=== PATIENT | male | born 1990 | race Caucasian/White ===

== ENCOUNTER 2016-12-25 21:42 | Emergency (ER) | payer OTHER ==
[2016-12-25 21:53] VITALS: RESP 18
[2016-12-25] MEDS ORDERED: MORPHINE SULFATE 10 MG/ML SYRINGE IM STA (22:18)
--- NOTE | 2016-12-25 22:23 | XR ---
EXAM: XR Left Hand Complete, 3 or More Views CLINICAL HISTORY: Reason: Pain TECHNIQUE: Frontal, lateral and oblique views of the left hand. COMPARISON: No relevant prior studies available. FINDINGS: Bones/joints: While there may be subtle contour deformity of the proximal and distal fifth metacarpal, these appear smoothly marginated and no discrete fracture lucency is seen to suggest an acute fracture. Remaining osseous structures appear intact as does alignment. Soft tissues: No radiopaque foreign body. IMPRESSION: Subtle contour deformity of the fifth metacarpal albeit without discrete acute fracture lucency seen at this time. Note that acute nondisplaced fractures may initially be radiographically occult, and short-term follow-up exam could be obtained perhaps within 3-5 days if concern or symptoms persist.
--- NOTE | 2016-12-25 22:47 | ED ---
Upper Extremity HPI - General Chief Complaint: Extremity Injury, Upper Stated Complaint: Poss Broken Hand Time Seen by Provider: 12/25/16 22:03 Source: patient Mode of arrival: ambulatory Limitations: no limitations - History of Present Illness Initial Comments: Patient is a 26-year-old left-handed white male presenting to the emergency department with complaints of progressive left hand and wrist pain. Patient states that he repeatedly was punching a steel wall out of anger at 12 PM today. Patient complains of pain just distally to his fourth and fifth digit on the left hand, radiating across his hand, over to his wrist. Patient reports numbness to his fourth digit at the tip of his left hand. Patient currently rates pain 10 out of 10, described as sharp, exacerbated with movement , with no relieving factors. Patient states he took a Motrin 800 mg approximately one hour prior to arrival. Patient denies any previous injury or surgery to left upper extremity. Patient states he received a tetanus immunization less than 5 years ago. Severity scale (1-10): 10 (Sharp, throbbing) - Related Data Previous Rx's Medication Instructions Recorded Famotidine [Pepcid] 20 mg PO BID #28 tablet 03/18/16 HYDROcodone/APAP 5-325MG [[place] 1 tab PO Q4HR PRN #20 tab 12/25/16 5-325] Ibuprofen [Motrin] 800 mg PO Q8HR PRN #20 tab 12/25/16 Allergies Allergy/AdvReac Type Severity Reaction Status Date / Time No Known Allergies Allergy Verified 12/25/16 21:53 Review of Systems ROS Statement: Those systems with pertinent positive or pertinent negative responses have been documented in the HPI. ROS Other: All systems not noted in ROS Statement are negative. 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 Absent: scleral icterus, conjunctival injection, periorbital swelling, periorbital tenderness ENT exam: Present: normal exam, mucous membranes moist. Absent: normal oropharynx, normal external ear exam Neck exam: Present: normal inspection, full ROM. Absent: tenderness, lymphadenopathy Respiratory exam: Present: normal lung sounds bilaterally. Absent: respiratory distress, wheezes, rales, rhonchi Cardiovascular Exam: Present: regular rate, normal rhythm, normal heart sounds. Absent: systolic murmur GI/Abdominal exam: Present: soft, normal bowel sounds. Absent: tenderness Left Elbow exam: Present: normal inspection, full ROM Forearm Wrist exam: Present: tenderness, tenderness over anatomical snuff box, pain with axial thumb loading Hand Wrist exam: Present: tenderness (Tenderness and swelling distal to fourth and fifth metacarpal), swelling, abrasion (Multiple abrasions noted to knuckles on left hand.). Absent: full ROM Neuro motor exam: Present: wrist extension intact, thumb opposition intact, thumb IP flexion intact, thumb adduction intact, fingers 2-5 abduction intact Neurosensory exam: Present: 2-point discrimination, radial nerve intact, ulnar nerve intact, median nerve intact Vascular: Present: normal capillary refill, radial pulse, brachial pulse, ulnar pulse. Absent: vascular compromise Neurological exam: Present: alert, oriented X3, normal gait, other (No focal deficits noted.) Psychiatric exam: Present: normal affect, normal mood Skin exam: Present: warm, dry, normal color, abrasion Course Vital Signs 12/25/16 21:49 Temperature 98.2 F Pulse Rate 100 Respiratory 18 Rate Blood Pressure 137/86 O2 Sat by Pulse 99 Oximetry Medical Decision Making - Medical Decision Making Tiny chip fracture involving the base of the fourth metacarpal along its radial margin. Left wrist pain with no evidence of acute left wrist fracture or dislocation. Multiple abrasions to smoke also left hand. Patient placed in a volar splint and thumb speakers splint and instructed to follow-up with orthopedic service next 3-5 days. Patient agrees with treatment plan. Discharge instructions and return parameters reviewed. - Radiology Data Radiology results: report reviewed X-ray left hand: Subtle contour deformity of the fifth metacarpal no bite without discrete acute fracture lucency seen at this time. As read by radiologistDr.Fine. Left wrist x-ray: Possible tiny chip fracture involving the base of the fourth metacarpal along its radial margin. No evidence of acute left wrist fracture nor dislocation. As read by radiologistDr. Portillo. Disposition Clinical Impression: Fracture of fourth metacarpal bone of left hand, Left wrist pain, Abrasion hand Disposition: HOME SELF-CARE Condition: Good Instructions: Hand Fracture (ED), Splint Care (ED), Wrist Injury (ED), Abrasion (ED) Additional Instructions: Avoid activity that causes left hand or wrist pain pain Apply ice to left hand and wrist 4 times a day for 15-20 minutes over next 2 days. Keep elevated as much as possible 24-48 hours. Continue prescribed Motrin 3 times a day for next 48 hours, may take [place] 5 for moderate to severe pain. Return to the emergency department with symptoms of increased swelling, pain, numbness, tingling, or hand feeling cold to touch. Follow-up with primary service and orthopedic service as directed. Prescriptions: HYDROcodone/APAP 5-325MG [[place] 5-325] 1 tab PO Q4HR PRN #20 tab PRN Reason: Pain Ibuprofen [Motrin] 800 mg PO Q8HR PRN #20 tab PRN Reason: Pain Referrals: Helena Foreman MD [Primary Care Provider] - 1-2 days Hubert De Souza MD [STAFF PHYSICIAN] - 1-2 days Time of Disposition: 23:17
--- NOTE | 2016-12-25 22:57 | XR ---
EXAM: XR Left Wrist Complete, 3 or More Views CLINICAL HISTORY: Reason: Pain TECHNIQUE: Frontal, lateral and oblique views of the left wrist, and including a scaphoid view. COMPARISON: Earlier left hand series of the same day. FINDINGS: Bones/joints: As only apparent on the frontal view, there is a punctate ossific density along the radial margin of the fourth metacarpal base. This is inapparent on the other projections and not apparent on the earlier left hand series. Otherwise, the osseous structures about the wrist are intact as is alignment. Soft tissues: No radiopaque foreign body. IMPRESSION: 1. ? Tiny chip fracture involving the base of the fourth metacarpal along its radial margin. Correlate clinically with site of symptomatology. 2. No evidence of acute left wrist fracture nor dislocation.
[2016-12-25 23:25] VITALS: BP 138/65; PULSE 88; TEMP 99.2
== END 2016-12-25 23:24 | disposition home or self-care (01) ==
LOC: EC 21:42
DX: S62.305A Unspecified fracture of fourth metacarpal bone, left hand, initial encounter for closed fracture (principal); M89.8X4 Other specified disorders of bone, hand; M25.532 Pain in left wrist; F17.200 Nicotine dependence, unspecified, uncomplicated; W22.01XA Walked into wall, initial encounter
CPT/HCPCS: 99283; 29125; 73110; 73130; J2270

== ENCOUNTER 2017-09-13 11:25 | Emergency (ER) | payer BC ==
[2017-09-13 11:39] VITALS: BP 139/74; PULSE 91; RESP 16; TEMP 98
--- NOTE | 2017-09-13 12:42 | ED ---
Upper Extremity HPI - General Chief Complaint: Extremity Injury, Upper Stated Complaint: Felipe bite Time Seen by Provider: 09/13/17 12:04 Source: patient, RN notes reviewed Mode of arrival: ambulatory Limitations: no limitations - History of Present Illness Initial Comments: This is a 26-year-old male who presents to the emergency department with chief complaint of frostbite. Patient states that he spent 8 hours on Monday and one hour on Monday shoveling for work. He states that he was wearing gloves at the time that his right index finger became painful and white appearing. Patient states that he had Monday off and then worked again on Monday. Today he presents because last night he noticed that the tip of his right index finger became red. Patient states that last year he had frostbite of all fingers and that the redness had never happened then. Patient denies any other injuries. Denies fever, chills, chest pain, shortness of breath, abdominal pain , nausea or vomiting, constipation or diarrhea, dysuria or hematuria, numbness or tingling, headache or vision changes. - Related Data Previous Rx's Medication Instructions Recorded Famotidine [Pepcid] 20 mg PO BID #28 tablet 03/18/16 HYDROcodone/APAP 5-325MG [[place] 1 tab PO Q4HR PRN #20 tab 12/25/16 5-325] Ibuprofen [Motrin] 800 mg PO Q8HR PRN #20 tab 12/25/16 Ibuprofen 600 mg PO Q6HR #20 tablet 09/13/17 Allergies Allergy/AdvReac Type Severity Reaction Status Date / Time No Known Allergies Allergy Verified 09/13/17 11:36 Review of Systems ROS Statement: Those systems with pertinent positive or pertinent negative responses have been documented in the HPI. ROS Other: All systems not noted in ROS Statement are negative. 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 HEENT: Head atraumatic, normocephalic. Pupils are equal, round and reactive to light. Extraocular movements intact. Neck: Supple. Normal ROM. Cardiovascular: Regular rate and rhythm. No murmurs, rubs or gallops. Chest symmetrical. Respiratory: Lungs clear to auscultation bilaterally. No wheezes, rales or rhonchi. Normal respiratory effort with no use of accessory muscles. Musculoskeletal: Normal active and passive range of motion of right index finger. Mild pallor with surrounding erythema noted at distal tip of right index finger. There is no swelling or blisters. Sensation is intact. Cap refill is less than 2 seconds. Radial pulses are 2+ equal and palpable bilaterally. Skin: [place], warm and dry without rashes. Neurological: Alert and oriented x3. CN II-XII grossly intact. Speech is fluent and answers are appropriate. No focal neuro deficits. Psychiatric: Normal mood and affect. No overt signs of depression or anxiety noted. Limitations: no limitations Course Vital Signs 09/13/17 11:36 Temperature 98 F Pulse Rate 91 Respiratory 16 Rate Blood Pressure 139/74 O2 Sat by Pulse 98 Oximetry Medical Decision Making - Medical Decision Making This is a 26-year-old male who presents to the emergency department for evaluation of frostbite. Patient denies any blistering of the finger or loss of sensation. He has normal range of motion in that digit. Recommended patient to keep extremities at normal temperature and to limit use of the finger. I educated patient that the healing process may take some time. Patient is in no acute distress and is neurovascularly intact. He will be discharged home. This case was discussed with attending physician, Dr. Stevens. Patient is in agreement with plan and voices understanding. All questions were answered. Disposition Clinical Impression: Frostbite Disposition: HOME SELF-CARE Condition: Good Instructions: Frostbite (ED) Additional Instructions: Please take medications as prescribed. Please keep finger at normal temperature. Please follow up with primary care provider within 1-2 days. Return to emergency department if symptoms should worsen or any concerns arise. Prescriptions: Ibuprofen 600 mg PO Q6HR #20 tablet Referrals: Helena Foreman MD [Primary Care Provider] - 1-2 days Time of Disposition: 12:41
== END 2017-09-13 12:48 | disposition home or self-care (01) ==
LOC: EC 11:25
DX: T33.531A Superficial frostbite of right finger(s), initial encounter (principal); F17.200 Nicotine dependence, unspecified, uncomplicated; X31.XXXA Exposure to excessive natural cold, initial encounter
CPT/HCPCS: 99283

== ENCOUNTER 2018-01-17 18:00 | Emergency (ER) | payer BC ==
[2018-01-17 18:25] VITALS: BP 131/79; PULSE 80; RESP 16; TEMP 98
--- NOTE | 2018-01-17 18:32 | ED ---
Wound/Laceration HPI - General Chief Complaint: Wound/Laceration Stated Complaint: rt hand lac Time Seen by Provider: 01/17/18 18:26 Source: patient, RN notes reviewed Mode of arrival: ambulatory Limitations: no limitations - History of Present Illness Initial Comments: This is a 27-year-old male who presents to the emergency department with chief complaint of right hand laceration. Patient states that approximately 2-1/2 hours ago he was cutting drywall with a straight blade at home. He states that he slipped and lacerated the palm of his right hand. Patient states that he is up-to-date with tetanus. Denies any other injuries or trauma. Denies fever, chills, chest pain, shortness of breath, abdominal pain, nausea or vomiting, constipation or diarrhea, dysuria or hematuria, numbness or tingling, headache or vision changes. - Related Data Previous Rx's Medication Instructions Recorded Famotidine [Pepcid] 20 mg PO BID #28 tablet 03/18/16 HYDROcodone/APAP 5-325MG [[place] 1 tab PO Q4HR PRN #20 tab 12/25/16 5-325] Ibuprofen [Motrin] 800 mg PO Q8HR PRN #20 tab 12/25/16 Ibuprofen 600 mg PO Q6HR #20 tablet 09/13/17 Allergies Allergy/AdvReac Type Severity Reaction Status Date / Time No Known Allergies Allergy Verified 01/17/18 18:25 Review of Systems ROS Statement: Those systems with pertinent positive or pertinent negative responses have been documented in the HPI. ROS Other: All systems not noted in ROS Statement are negative. 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 HEENT: Head atraumatic, normocephalic. Pupils are equal, round and reactive to light. Extraocular movements intact. Oropharynx moist without erythema or exudate. Neck: Supple. Normal ROM. Cardiovascular: Regular rate and rhythm. No murmurs, rubs or gallops. Chest symmetrical. Respiratory: Lungs clear to auscultation bilaterally. No wheezes, rales or rhonchi. Normal respiratory effort with no use of accessory muscles. Musculoskeletal: Normal range motion of the right hand. There is an approximately 2.0 cm linear laceration at the palmar aspect base of the right thumb. No active bleeding. Sensation is intact. Radial pulses are 2+ equal and palpable bilaterally. Skin: [address], warm and dry without rashes or lesions. Neurological: Alert and oriented x3. CN II-XII grossly intact. Speech is fluent and answers are appropriate. No focal neuro deficits. Psychiatric: Normal mood and affect. No overt signs of depression or anxiety noted. Limitations: no limitations Course Vital Signs 01/17/18 18:23 Temperature 98.0 F Pulse Rate 80 Respiratory 16 Rate Blood Pressure 131/79 O2 Sat by Pulse 99 Oximetry Procedures - Laceration Laceration #1 Consent Obtained: verbal consent Indication: laceration Site: hand (Palmar aspect base of right first finger) Size (cm): 2 Description: linear Depth: simple, single layer Anesthetic Used: lidocaine 1% Anesthesia Technique: local infiltration Amount (mls): 3 Pre-repair: wound explored, irrigated extensively, deep structures intact Type of Sutures: nylon Size of Sutures: 5-0 Number of Sutures: 3 Technique: simple, interrupted Patient Tolerated Procedure: well, no complications Medical Decision Making - Medical Decision Making This is a 27-year-old male who presents to the emergency department with chief complaint of right hand laceration. Patient sustained an approximately 2 cm linear laceration at the base of his right thumb. 3 sutures were placed and patient tolerated well without complication. An x-ray was obtained and revealed no acute bony abnormality. Recommended removal of sutures in 10-14 days. Patient is in agreement with plan and voices understanding. He will be discharged home at this time. All questions answered. - Radiology Data Radiology results: report reviewed X-ray right hand impression: Small laceration at the head of the first metacarpal. No fracture. No sign of foreign body. Disposition Clinical Impression: Hand laceration Disposition: HOME SELF-CARE Condition: Good Instructions: Laceration (ED) Additional Instructions: Please have sutures removed in 10-14 days. Please follow up with primary care provider within 1-2 days. Return to emergency department if symptoms should worsen or any concerns arise. Is patient prescribed a controlled substance at d/c from ED?: No Referrals: Helena Foreman MD [Primary Care Provider] - 1-2 days Time of Disposition: 19:13
--- NOTE | 2018-01-17 19:03 | XR ---
EXAMINATION TYPE: XR hand limited RT DATE OF EXAM: 01/17/2018 COMPARISON: NONE HISTORY: Laceration base of the thumb TECHNIQUE: 2 views FINDINGS: I see no fracture nor dislocation. Joint spaces are normal. There is small soft tissue defe ct at the head of the first metacarpal. IMPRESSION: Small laceration at the head of the first metacarpal. No fracture. No sign of a foreign b [place].
== END 2018-01-17 19:15 | disposition home or self-care (01) ==
LOC: EC 18:00
DX: S61.411A Laceration without foreign body of right hand, initial encounter (principal); F17.200 Nicotine dependence, unspecified, uncomplicated; W45.8XXA Other foreign body or object entering through skin, initial encounter; Y93.89 Activity, other specified; Y92.009 Unspecified place in unspecified non-institutional (private) residence as the place of occurrence of the external cause
CPT/HCPCS: 12001; 99283

== ENCOUNTER 2020-02-08 11:04 | Emergency (ER) | payer BC, OTHER ==
[2020-02-08] MEDS ORDERED: LIDOCAINE-PRILOCAINE 2.5-2.5% CREAM 5 GM TUBE TOPICAL STA (11:11)
[2020-02-08 11:14] VITALS: RESP 16; TEMP 98
[2020-02-08] MEDS ORDERED: LIDOCAINE 1% INJ 10MG/ML (20 ML MDV) SQ ONE (11:16)
--- NOTE | 2020-02-08 11:45 | ED ---
Wound/Laceration HPI - General Chief Complaint: Wound/Laceration Stated Complaint: finger lac Time Seen by Provider: 02/08/20 11:09 Source: patient Mode of arrival: ambulatory Limitations: no limitations - History of Present Illness Initial Comments: 29-year-old male presenting for left index finger laceration patient is left- hand dominant. Patient states that he was trying to break a bamboo stick when it cut his left index finger. Patient states when edges approximate well but it was slightly deep and he thought he may need laceration repair. Patient states his tetanus is up-to-date within the last 5 years. Patient denies any retained foreign bodies noted he does have limitations and sensation or range of motion/strength of the digit. Patient has no additional complaint. Appears well on arrival, no acute distress. Bleeding controlled. - Related Data Previous Rx's Medication Instructions Recorded Famotidine [Pepcid] 20 mg PO BID #28 tablet 03/18/16 HYDROcodone/APAP 5-325MG [[place] 1 tab PO Q4HR PRN #20 tab 12/25/16 5-325] Ibuprofen [Motrin] 800 mg PO Q8HR PRN #20 tab 12/25/16 Ibuprofen 600 mg PO Q6HR #20 tablet 09/13/17 Allergies Allergy/AdvReac Type Severity Reaction Status Date / Time No Known Allergies Allergy Verified 02/08/20 11:13 Review of Systems ROS Statement: Those systems with pertinent positive or pertinent negative responses have been documented in the HPI. ROS Other: All systems not noted in ROS Statement are negative. 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 Eye: Pupils are equal, round and reactive to light, extra-ocular movements are intact. No nystagmus. There is normal conjunctiva bilaterally. No signs of icterus. Cardiovascular: There is a regular rate and rhythm. No murmur, rub or gallop is appreciated. Respiratory: Lungs are clear to auscultation, respirations are non-labored, breath sounds are equal. No wheezes, stridor, rales, or rhonchi. Musculoskeletal: Full ROM at the MCP, PIP and DIP joint of the left index finger, each joint was insolated and tested individually. Strength 5/5 at these joints. Sensation intact proximal and distal to laceration site. Radial pulses equal bilaterally 2+. Capillary refill of affected digit < 2 seconds. Neurological: A&O x 3. CN II-XII intact grossly, There are no obvious motor or sensory deficits. Coordination appears grossly intact. Speech is normal. Skin: Skin is warm and dry and no rashes. 1.2cm skip flap with well approximating edges on the pad of the left index finger, no foreign body relatively superficial. Psychiatric: Cooperative, appropriate mood & affect, normal judgment. Limitations: no limitations Course Vital Signs 02/08/20 02/08/20 11:11 11:51 Temperature 98 F Pulse Rate 61 97 Respiratory 16 16 Rate Blood Pressure 142/107 141/98 O2 Sat by Pulse 98 97 Oximetry Procedures - Laceration Laceration #1 Consent Obtained: verbal consent Indication: laceration Site: other (finger left index) Size (cm): 1 Description: linear, flap Anesthesia Technique: local infiltration Amount (mls): 1 Pre-repair: wound explored, irrigated extensively, deep structures intact Type of Sutures: nylon Size of Sutures: 5-0 Number of Sutures: 3 Technique: simple, interrupted Patient Tolerated Procedure: well, no complications Medical Decision Making - Medical Decision Making 29yo for finger laceration, superficial in nature but skin flap was sutured down after irrigation and local anesthetic. Patient tolerated procedure well. No other injuries. Neurovascularly intact Disposition Clinical Impression: Laceration of left index finger Disposition: HOME SELF-CARE Condition: Good Instructions (If sedation given, give patient instructions): Care For Your Stitches (ED), Laceration (ED) Additional Instructions: Please use medication as discussed. Please return for suture removal in 7-10 days monitor for signs of infection or drainage increasing redness or swelling of the digit if these symptoms occur please follow-up with primary or presents emergency department for reevaluation of wound immediately Please return to emergency room if the symptoms increase or worsen or for any other concerns. Is patient prescribed a controlled substance at d/c from ED?: No Referrals: Helena Formean MD [Primary Care Provider] - 1-2 days Time of Disposition: 11:45
[2020-02-08 11:54] VITALS: BP 141/98; PULSE 97
== END 2020-02-08 11:51 | disposition home or self-care (01) ==
LOC: EC 11:04
DX: S61.211A Laceration without foreign body of left index finger without damage to nail, initial encounter (principal); F17.200 Nicotine dependence, unspecified, uncomplicated; W45.8XXA Other foreign body or object entering through skin, initial encounter; Y93.89 Activity, other specified; Y92.89 Other specified places as the place of occurrence of the external cause
CPT/HCPCS: 12001; 99282; J2001

== ENCOUNTER 2020-02-25 14:46 | Emergency (ER) | payer OTHER ==
[2020-02-25 14:59] VITALS: BP 146/89; PULSE 72; RESP 16; TEMP 98.7
--- NOTE | 2020-02-25 15:12 | ED ---
General Adult HPI - General Chief complaint: Recheck/Abnormal Lab/Rx Stated complaint: covid test Time Seen by Provider: 02/25/20 15:25 Source: patient Mode of arrival: ambulatory Limitations: no limitations - History of Present Illness Initial comments: Patient presents to the emergency department requesting Covid testing. Patient states that he came in contact with someone who could have been possibly Covid positive. He denies having any symptoms at this time. No chest pain or shortness of breath. No fevers or chills. Denies any nausea or vomiting. No other alleviating, precipitating and or modifying factors - Related Data Previous Rx's Medication Instructions Recorded Famotidine [Pepcid] 20 mg PO BID #28 tablet 03/18/16 HYDROcodone/APAP 5-325MG [[place] 1 tab PO Q4HR PRN #20 tab 12/25/16 5-325] Ibuprofen [Motrin] 800 mg PO Q8HR PRN #20 tab 12/25/16 Ibuprofen 600 mg PO Q6HR #20 tablet 09/13/17 Allergies Allergy/AdvReac Type Severity Reaction Status Date / Time No Known Allergies Allergy Verified 02/25/20 14:59 Review of Systems ROS Statement: Those systems with pertinent positive or pertinent negative responses have been documented in the HPI. ROS Other: All systems not noted in ROS Statement are negative. 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 Absent: scleral icterus, conjunctival injection, periorbital swelling ENT exam: Present: normal exam, mucous membranes moist Neck exam: Present: normal inspection. Absent: tenderness, meningismus, lymphadenopathy Respiratory exam: Present: normal lung sounds bilaterally. Absent: respiratory distress, wheezes, rales, rhonchi, stridor Cardiovascular Exam: Present: regular rate, normal rhythm, normal heart sounds. Absent: systolic murmur, diastolic murmur, rubs, gallop, clicks GI/Abdominal exam: Present: soft, normal bowel sounds. Absent: distended, tenderness, guarding, rebound, rigid Extremities exam: Present: normal inspection, full ROM, normal capillary refill. Absent: tenderness, pedal edema, joint swelling, calf tenderness Back exam: Present: normal inspection Neurological exam: Present: alert, oriented X3, CN II-XII intact Psychiatric exam: Present: normal affect, normal mood Skin exam: Present: warm, dry, intact, normal color. Absent: rash Course Vital Signs 02/25/20 14:57 Temperature 98.7 F Pulse Rate 72 Respiratory 16 Rate Blood Pressure 146/89 O2 Sat by Pulse 98 Oximetry Medical Decision Making - Medical Decision Making Upon arrival patient placed into room 32. A through history and physical exam was performed. Patient is asymptomatic at this time. He is swabbed for Covid. He is instructed to quarantine himself for 14 days. We will call him with positive results. Return to the emergency room for any new or worsening symptoms. Follow up with his primary care doctor in 2-4 days Disposition Clinical Impression: Normal physical exam Disposition: HOME SELF-CARE Condition: Stable Instructions (If sedation given, give patient instructions): Normal Exam (ED) Additional Instructions: Quarantine yourself for 14 days. Return to the emergency room for any new or worsening symptoms Is patient prescribed a controlled substance at d/c from ED?: No Referrals: None,Stated [Primary Care Provider] - 1-2 days Time of Disposition: 15:12
== END 2020-02-25 15:26 | disposition home or self-care (01) ==
LOC: EC 14:46
DX: Z03.818 Encounter for observation for suspected exposure to other biological agents ruled out (principal)
CPT/HCPCS: 99283; U0003

== ENCOUNTER 2021-09-17 11:07 | Emergency (ER) | payer OTHER ==
[2021-09-17 11:14] VITALS: BP 133/94; PULSE 69; RESP 20; TEMP 97.4
[2021-09-17] MEDS ORDERED: PENICILLIN VK 500MG STARTER 4 TAB BTL PO STA (11:57)
[2021-09-17] MEDS ORDERED: ACET/COD 300 MG/30 MG STARTER PACK 6 TAB BTL PO STA (11:57)
--- NOTE | 2021-09-17 12:04 | ED ---
General Adult HPI - General Chief complaint: Dental/Oral Stated complaint: Tooth pain Time Seen by Provider: 09/17/21 11:18 Source: patient Mode of arrival: ambulatory Limitations: no limitations - History of Present Illness Initial comments: 30-year-old male presents to the emergency room for a chief complaint of dental pain. Patient states this has been ongoing for 2 days now. States it is in the right lower jaw. Patient states it is swollen as well. No fevers or chills. Patient does not currently have dental insurance.Patient has no other complaints at this time including shortness of breath, chest pain, abdominal pain, nausea or vomiting, headache, or visual changes. - Related Data Previous Rx's Medication Instructions Recorded Famotidine [Pepcid] 20 mg PO BID #28 tablet 03/18/16 HYDROcodone/APAP 5-325MG [[place] 1 tab PO Q4HR PRN #20 tab 12/25/16 5-325] Ibuprofen [Motrin] 800 mg PO Q8HR PRN #20 tab 12/25/16 Ibuprofen 600 mg PO Q6HR #20 tablet 09/13/17 Ibuprofen [Motrin] 600 mg PO Q8HR PRN #20 tab 09/17/21 Penicillin V Potassium [Pen Vee K] 500 mg PO Q6H 10 Days #40 tablet 09/17/21 Allergies Allergy/AdvReac Type Severity Reaction Status Date / Time No Known Allergies Allergy Verified 09/17/21 11:14 Review of Systems ROS Statement: Those systems with pertinent positive or pertinent negative responses have been documented in the HPI. ROS Other: All systems not noted in ROS Statement are negative. 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 Absent: scleral icterus, conjunctival injection, nystagmus ENT exam: Present: mucous membranes moist. Absent: normal oropharynx (Patient has poor dentition with dental abscess noted of tooth 29) Neck exam: Present: normal inspection, full ROM. Absent: tenderness Respiratory exam: Present: normal lung sounds bilaterally. Absent: respiratory distress, wheezes Cardiovascular Exam: Present: regular rate, normal rhythm, normal heart sounds Course Vital Signs 09/17/21 11:12 Temperature 97.4 F L Pulse Rate 69 Respiratory 20 Rate Blood Pressure 133/94 O2 Sat by Pulse 100 Oximetry Procedures - Incision & Drainage Consent Obtained: verbal consent Indication: Dental abscess Scalpel Used: #11 (18 G) I&D Drainage Obtained: Pus Patient Tolerated Procedure: well, no complications Medical Decision Making - Medical Decision Making Dental abscess was drained. Patient started on antibiotics. Given referrals to dental clinics that do not require insurance. Disposition Clinical Impression: Pain, dental, Dental abscess Disposition: HOME SELF-CARE Condition: Good Instructions (If sedation given, give patient instructions): Dental Abscess (ED) Additional Instructions: Take medications as directed. Follow up with dentist. Return to the emergency room for any worsening symptoms. [facility] [address] [address] (existing clients only) New clients: [phone] 1st consult: $50 (includes XRs) Usually 30% less than private dentist for visits after. [employer] [facility] [employer] Have to pay $50 for Xrays and rest is covered [phone] Prescriptions: Ibuprofen [Motrin] 600 mg PO Q8HR PRN #20 tab PRN Reason: Pain Penicillin V Potassium [Pen Vee K] 500 mg PO Q6H 10 Days #40 tablet Is patient prescribed a controlled substance at d/c from ED?: No Referrals: Helena Foreman MD [Primary Care Provider] - 1-2 days Time of Disposition: 12:03
== END 2021-09-17 12:38 | disposition home or self-care (01) ==
LOC: EC 11:07
DX: K04.7 Periapical abscess without sinus (principal); G43.909 Migraine, unspecified, not intractable, without status migrainosus; F17.200 Nicotine dependence, unspecified, uncomplicated; F12.90 Cannabis use, unspecified, uncomplicated
CPT/HCPCS: 99282

== ENCOUNTER 2021-09-24 10:36 | Emergency (ER) | payer OTHER ==
[2021-09-24 10:42] VITALS: BP 149/74; PULSE 77; RESP 18; TEMP 97.8
[2021-09-24] MEDS ORDERED: ACET/COD 300 MG/30 MG STARTER PACK 6 TAB BTL PO STA (10:52)
--- NOTE | 2021-09-24 10:56 | ED ---
ENT HPI - General Chief complaint: Dental/Oral Stated complaint: dental pain Time Seen by Provider: 09/24/21 10:43 Source: patient, RN notes reviewed Mode of arrival: ambulatory Limitations: no limitations - History of Present Illness Initial comments: This a 22-year-old male presents emergency department with chief complaint of dental pain Patient states is chronic as long for right-sided dental pain, infection. Patient states his developed on the left side last day or so the pain is been waxing and waning. He does not have current dentist. He does have mild pain and swelling along the left mandibular region. Patient offers no complaints. - Related Data Previous Rx's Medication Instructions Recorded Ibuprofen [Motrin] 600 mg PO Q8HR PRN #20 tab 09/17/21 Penicillin V Potassium [Pen Vee K] 500 mg PO Q6H 10 Days #40 tablet 09/18/21 Clindamycin HCl 300 mg PO Q6HR #40 cap 09/24/21 Allergies Allergy/AdvReac Type Severity Reaction Status Date / Time No Known Allergies Allergy Verified 09/24/21 10:43 Review of Systems ROS Statement: Those systems with pertinent positive or pertinent negative responses have been documented in the HPI. ROS Other: All systems not noted in ROS Statement are negative. 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 Absent: scleral icterus, conjunctival injection, periorbital swelling ENT exam: Present: mucous membranes moist, TM's normal bilaterally. Absent: normal oropharynx (Poor dentition, no drainable abscess. Mild tenderness along the left mandibular region.) Neck exam: Present: normal inspection, full ROM. Absent: tenderness, meningismus, lymphadenopathy Respiratory exam: Present: normal lung sounds bilaterally. Absent: respiratory distress, wheezes, rales, rhonchi, stridor Cardiovascular Exam: Present: regular rate, normal rhythm, normal heart sounds. Absent: systolic murmur, diastolic murmur, rubs, gallop, clicks Neurological exam: Present: alert, oriented X3 Course Vital Signs 09/24/21 10:41 Temperature 97.8 F Pulse Rate 77 Respiratory 18 Rate Blood Pressure 149/74 O2 Sat by Pulse 99 Oximetry Medical Decision Making - Medical Decision Making Patient be treated for dental infection with clindamycin patient we discharged in stable condition patient advised follow-up with dentist return parameters were discussed. Disposition Clinical Impression: Pain, dental, Dental abscess Disposition: HOME SELF-CARE Condition: Stable Instructions (If sedation given, give patient instructions): Dental Abscess (ED) Additional Instructions: Please return to the Emergency Department if symptoms worsen or any other concerns. Prescriptions: Clindamycin HCl 300 mg PO Q6HR #40 cap Is patient prescribed a controlled substance at d/c from ED?: No Referrals: Helena Foreman MD [Primary Care Provider] - 1-2 days Time of Disposition: 10:56
== END 2021-09-24 11:48 | disposition home or self-care (01) ==
LOC: EC 10:36
DX: K04.7 Periapical abscess without sinus (principal); G43.909 Migraine, unspecified, not intractable, without status migrainosus; F17.200 Nicotine dependence, unspecified, uncomplicated; F12.90 Cannabis use, unspecified, uncomplicated
CPT/HCPCS: 99283

== ENCOUNTER 2024-12-17 19:00 | Emergency (ER) | payer OTHER ==
[2024-12-17 19:12] VITALS: BP 140/92; PULSE 81; RESP 18; TEMP 98.1
--- NOTE | 2024-12-17 19:34 | XR ---
EXAMINATION TYPE: XR forearm RT DATE OF EXAM: 12/17/2024 7:21 PM COMPARISON: None. CLINICAL INDICATION: Male, 34 years old with history of pain, pain TECHNIQUE: 2 view(s) obtained. FINDINGS: No acute fracture or dislocation. Anterior fat pad is normal. Joint spaces are preserved. Soft tissue s are unremarkable. Follow up exams can be performed 7-10 days from acute trauma for continued pain. IMPRESSION: 1. No acute osseous abnormality right forearm [facility] Orin Hall, , 12/17/2024 7:32 PM
--- NOTE | 2024-12-17 20:17 | ED ---
Upper Extremity HPI - General Chief Complaint: Extremity Injury, Upper Stated Complaint: R arm injury Time Seen by Provider: 12/17/24 19:19 Source: patient, RN notes reviewed Mode of arrival: ambulatory Limitations: no limitations - History of Present Illness Initial Comments: This is a 34-year-old male presenting with right forearm injury about 1 hour ago. Patient states he was carrying a transmission at work when he incidentally hit his forearm on the corner of a doorway with subsequent pain (6/10). Patient denies LROM, distal paresthesia, loss of strength, other injuries. MD Complaint: Injury to:: right, forearm Onset/Timin -: hour(s) Other Extremity Injury: Arm: Right Other Injuries: none Place: work Severity scale (1-10): 6 Improves With: immobilization Worsens With: movement of extremity Context: direct blow Associated Symptoms: denies other symptoms - Related Data Previous Rx's Medication Instructions Recorded Ibuprofen [Motrin] 600 mg PO Q8HR PRN #20 tab 09/17/21 Penicillin V Potassium [Pen Vee K] 500 mg PO Q6H 10 Days #40 tablet 09/18/21 clindamycin HCL [Clindamycin HCl] 300 mg PO Q6HR #40 cap 09/24/21 Allergies Allergy/AdvReac Type Severity Reaction Status Date / Time No Known Allergies Allergy Verified 12/17/24 19:12 Review of Systems ROS Statement: Those systems with pertinent positive or pertinent negative responses have been documented in the HPI. ROS Other: All systems not noted in ROS Statement are negative. 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 Absent: scleral icterus, conjunctival injection, periorbital swelling ENT exam: Present: normal exam, mucous membranes moist Neck exam: Present: normal inspection. Absent: tenderness, meningismus, lymphadenopathy Respiratory exam: Present: normal lung sounds bilaterally. Absent: respiratory distress, wheezes, rales, rhonchi, stridor Cardiovascular Exam: Present: regular rate, normal rhythm, normal heart sounds. Absent: systolic murmur, diastolic murmur, rubs, gallop, clicks GI/Abdominal exam: Present: soft, normal bowel sounds. Absent: distended, tenderness, guarding, rebound, rigid Extremities exam: Present: normal inspection, full ROM, tenderness (Positive mid right forearm tenderness and muscle spasm on ulnar aspect. Negative open wound, ecchymosis, deformity, crepitus. ), normal capillary refill, other ( FROM of right elbow and wrist. Distal neurovascular and motor function intact, concierge receptionist strength 5/5. Radial pulse +2 capillary refill less than 2 seconds.). Absent: pedal edema, joint swelling, calf tenderness Back exam: Present: normal inspection Neurological exam: Present: alert, oriented X3, CN II-XII intact Psychiatric exam: Present: normal affect, normal mood Skin exam: Present: warm, dry, intact, normal color. Absent: rash Course Vital Signs 12/17/24 19:10 Temperature 98.1 F Pulse Rate 81 Respiratory 18 Rate Blood Pressure 140/92 O2 Sat by Pulse 97 Oximetry Medical Decision Making - Medical Decision Making Was pt. sent in by a medical professional or institution (, PA, ROOFING LABORER, urgent care, hospital, or snf...) When possible be specific @ -No Did you speak to anyone other than the patient for history (EMS, parent, family, police, friend...)? What history was obtained from this source @ -No Did you review nursing and triage notes (agree or disagree)? Why? @ -I reviewed and agree with nursing and triage notes Were old charts reviewed (outside hosp., previous admission, EMS record, old EKG, old radiological studies, urgent care reports/EKG's, snf records)? Report findings @ -No old charts were reviewed Differential Diagnosis (chest pain, altered mental status, abdominal pain women, abdominal pain men, vaginal bleeding, weakness, fever, dyspnea, syncope, headache, dizziness, GI bleed, back pain, seizure, CVA, palpatations, mental health, musculoskeletal)? @ -Differential Musculoskeletal Muscular strain, contusion, ligament sprain, fracture, arthritis, septic arthritis, bursitis, cellulitis, muscle spasm, nerve compression, DVT, arterial occlusion, herpes zoster, electrolyte abnormality, tumor.... This is not meant to be in all inclusive list EKG interpreted by me (3pts min.). @ -Not done X-rays interpreted by me (1pt min.). @ -Right forearm x-ray shows no acute fracture or dislocation. CT interpreted by me (1pt min.). @ -None done U/S interpreted by me (1pt. min.). @ -None done What testing was considered but not performed or refused? (CT, X-rays, U/S, labs)? Why? @ -None What meds were considered but not given or refused? Why? @ -Declined p.o. Motrin and IM Toradol for pain. Did you discuss the management of the patient with other professionals (professionals i.e. , PA, ROOFING LABORER, lab, RT, psych nurse, social contact worker, account development manager, teacher, chemical instrumentation officer, returned case inspector)? Give summary @ -No Was smoking cessation discussed for >3mins.? @ -No Was critical care preformed (if so, how long)? @ -No Were there social determinants of health that impacted care today? How? (Homelessness, low income, unemployed, alcoholism, drug addiction, transportation, low edu. Level, literacy, decrease access to med. care, fci, rehab)? @ -No Was there de-escalation of care discussed even if they declined (Discuss DNR or withdrawal of care, Hospice)? DNR status @ -No What co-morbidities impacted this encounter? (DM, HTN, Smoking, COPD, CAD, Cancer, CVA, ARF, Chemo, Hep., AIDS, mental health diagnosis, sleep apnea, morbid obesity)? @ -None Was patient admitted / discharged? Hospital course, mention meds given and route, prescriptions, significant lab abnormalities, going to OR and other pertinent info. @ -Right forearm x-ray shows no acute fracture or dislocation. Patient states he was mainly concerned about the possibility of fracture and is declining all pain medication offered, stating he wishes to return to work at this time. Advised alternate Tylenol/Motrin every 4 hours for pain. Rest, ice, compression, elevation. Recommend follow-up with PCP. Discussed patient with Dr. To. Undiagnosed new problem with uncertain prognosis? @ -No Drug Therapy requiring intensive monitoring for toxicity (Heparin, Nitro, Insulin, Cardizem)? @ -No Were any procedures done? @ -No Diagnosis/symptom? @ -Right forearm contusion Acute, or Chronic, or Acute on Chronic? @ -Acute Uncomplicated (without systemic symptoms) or Complicated (systemic symptoms)? @ -Uncomplicated Side effects of treatment? @ -No Exacerbation, Progression, or Severe Exacerbation? @ -No Poses a threat to life or bodily function? How? (Chest pain, [place], [place], pneumonia, PE, COPD, DKA, ARF, appy, cholecystitis, CVA, Diverticulitis, Homicidal, Suicidal, threat to staff... and all critical care pts) @ -No Disposition Clinical Impression: Contusion of right forearm Disposition: HOME SELF-CARE Condition: Good Instructions (If sedation given, give patient instructions): Arm Pain (ED) Additional Instructions: Rest, ice, compression, elevation. Alternate Tylenol/Motrin every 4 hours for pain. Is patient prescribed a controlled substance at d/c from ED?: No Referrals: None,Stated [Primary Care Provider] - 1-2 days Jason Mccoy Jr, DO [Doctor of Osteopathic Medicine] - 1-2 days Time of Disposition: 20:19
== END 2024-12-17 20:31 | disposition home or self-care (01) ==
LOC: EC 19:00
DX: S50.11XA Contusion of right forearm, initial encounter (principal); F17.200 Nicotine dependence, unspecified, uncomplicated; W22.03XA Walked into furniture, initial encounter; Y99.0 Civilian activity done for income or pay
CPT/HCPCS: 99283